=== PATIENT | female | born 1970 | race Caucasian/White ===

== ENCOUNTER 2016-06-06 05:07 | Emergency (ER) | payer SELFPAY ==
[~2016-06-06 05:07] MED LIST: KEFLEX500 MG PO; VOLTAREN75 MG PO
== END 2016-06-06 06:31 | disposition home or self-care (01) ==
LOC: CED 05:07
DX: R21 Rash and other nonspecific skin eruption (principal); L29.9 Pruritus, unspecified; F17.210 Nicotine dependence, cigarettes, uncomplicated
CPT/HCPCS: 99282